=== PATIENT | female | born 1995 | race American Indian/Alaskan Native ===

== ENCOUNTER 2016-11-11 15:13 | Emergency (ER) | payer SELFPAY ==
[2016-11-11 16:08] VITALS: BP 110/63
--- NOTE | 2016-11-11 16:23 | Emergency Department Report ---
Chief Complaint: Abdominal Pain Stated Complaint: SEVERE ABD PAIN/VOMITTING Time Seen by Provider: 11/11/16 16:17 - HPI History of Present Illness: 21-year-old female presents today with abdominal pain 3 days. Denies fever, chills, nausea, vomiting, chest pain, shortness of breath, burning upon urination, vaginal discharge. Also complaining of red blood in urine 5 days but is unsure whether it's vaginal or urinary. - ROS Review of Systems: Per HPI - Exam Vital Signs: Vital Signs 11/11/16 16:01 Temperature 98.2 F Pulse Rate 73 Respiratory 16 Rate Blood Pressure 110/63 O2 Sat by Pulse 100 Oximetry Physical Exam: General: A 1-year-old female in no acute distress. Well-developed, well- nourished. CV: Regular rate and rhythm. Lungs: Clear to auscultation bilaterally. Abdomen: Tenderness to palpation of the epigastric region and right lower quadrant. No guarding or rebound tenderness. MSE screening note: Focused history and physical exam performed. Due to findings the following was ordered: ED Disposition for MSE Condition: Stable Instructions: Abdominal Pain (ED)
[2016-11-11 16:44] LABS: Basophils % (Auto) 0.5 % (0.0-1.8); Eosinophils % (Auto) 0.9 % (0.0-4.3); Hematocrit 39.5 % (30.3-42.9); Hemoglobin 12.9 gm/dl (10.1-14.3); Mean Corpuscular HGB Conc 33 % (30-34); Mean Corpuscular Hemoglobin 30 pg (28-32); Mean Corpuscular Volume 92 fl (79-97); Platelet Count 215 K/mm3 (140-440); Red Blood Count 4.32 M/mm3 (3.65-5.03); Red Cell Distribution Width 13.1 % (13.2-15.2); White Blood Count 7.3 K/mm3 (4.5-11.0)
[2016-11-11 17:02] LABS: Anion Gap 16 mmol/L; BUN/Creatinine Ratio 18.57; Blood Urea Nitrogen 13 mg/dL (7-17); Calcium 8.8 mg/dL (8.4-10.2); Carbon Dioxide 26 mmol/L (22-30); Glucose 69 mg/dL (65-100); Lipase 23 units/L (13-60); Sodium 140 mmol/L (137-145)
[2016-11-11 17:17] LABS: Bilirubin,Urine NEG (Negative); Blood,Urine LG (Negative); Ketones,Urine NEG (Negative); Leukocyte Esterase,Urine NEG (Negative); Mucus,Urine 3+ /HPF; Nitrite,Urine NEG (Negative); Protein,Urine <15 mg/dL mg/dL (Negative)
--- NOTE | 2016-11-13 12:21 | ED Elopement Review ---
ED Pt Elopement review - Results review Lab results: Laboratory Tests 11/11/16 11/11/16 11/11/16 16:24 16:24 16:24 WBC 7.3 RBC 4.32 Hgb 12.9 Hct 39.5 MCV 92 MCH 30 MCHC 33 RDW 13.1 L Plt Count 215 Lymph % (Auto) 28.5 [place] % (Auto) 6.5 Eos % (Auto) 0.9 Baso % (Auto) 0.5 Lymph # 2.1 [place] # 0.5 Eos # 0.1 Baso # 0.0 Seg Neutrophils % 63.6 Seg Neutrophils # 4.7 Sodium 140 Potassium 4.0 Chloride 102.0 Carbon Dioxide 26 Anion Gap 16 BUN 13 Creatinine 0.7 Estimated GFR > 60 BUN/Creatinine Ratio 18.57 Glucose 69 Calcium 8.8 Amylase 78 Lipase 23 Urine Color Urine Turbidity Urine pH Ur Specific [place] Urine Protein Urine Glucose (UA) Urine Ketones Urine Blood Urine Nitrite Urine Bilirubin Urine Urobilinogen Ur Leukocyte Esterase Urine WBC (Auto) Urine RBC (Auto) U Epithel Cells (Auto) Urine Mucus Urine HCG, Qual 11/11/16 16:53 WBC RBC Hgb Hct MCV MCH MCHC RDW Plt Count Lymph % (Auto) [place] % (Auto) Eos % (Auto) Baso % (Auto) Lymph # [place] # Eos # Baso # Seg Neutrophils % Seg Neutrophils # Sodium Potassium Chloride Carbon Dioxide Anion Gap BUN Creatinine Estimated GFR BUN/Creatinine Ratio Glucose Calcium Amylase Lipase Urine Color Yellow Urine Turbidity Clear Urine pH 6.0 Ur Specific [place] 1.024 Urine Protein <15 mg/dl Urine Glucose (UA) Neg Urine Ketones Neg Urine Blood Lg Urine Nitrite Neg Urine Bilirubin Neg Urine Urobilinogen 2.0 Ur Leukocyte Esterase Neg Urine WBC (Auto) 1.0 Urine RBC (Auto) 2.0 U Epithel Cells (Auto) 6.0 Urine Mucus 3+ Urine HCG, Qual Negative - Call Back decision Pt Call Back Decision: No action required
== END 2016-11-11 23:55 | disposition left against medical advice (07) ==
LOC: ED 15:13
DX: R10.9 Unspecified abdominal pain (principal); R31.9 Hematuria, unspecified; Z53.21 Procedure and treatment not carried out due to patient leaving prior to being seen by health care provider
CPT/HCPCS: 36415; 80048; 81001; 81025; 82150; 83690; 85025

== ENCOUNTER 2017-08-02 10:47 | Emergency (ER) | payer SELFPAY ==
[2017-08-02 11:41] VITALS: BP 108/67
[2017-08-02 12:37] LABS: Bilirubin,Urine NEG (Negative); Blood,Urine NEG (Negative); Ketones,Urine NEG (Negative); Leukocyte Esterase,Urine TR (Negative); Mucus,Urine 3+ /HPF; Nitrite,Urine NEG (Negative)
== END 2017-08-02 12:30 | disposition left against medical advice (07) ==
LOC: ED 10:47
DX: M54.9 Dorsalgia, unspecified (principal); Z53.21 Procedure and treatment not carried out due to patient leaving prior to being seen by health care provider
CPT/HCPCS: 81001; 81025

== ENCOUNTER 2018-06-20 05:57 | Emergency (ER) | payer MEDICAID ==
[2018-06-20] MEDS ORDERED: BENADRYL IV ONE (06:48)
[2018-06-20] MEDS ORDERED: REGLAN IV ONE (06:49)
[2018-06-20 07:52] VITALS: BP 106/57
--- NOTE | 2018-06-20 08:00 | Emergency Department Report ---
ED General Adult HPI - General Chief complaint: Headache Stated complaint: SEVERE HEADACHE/6MO Time Seen by Provider: 06/20/18 07:58 Source: patient, RN notes reviewed, old records reviewed Mode of arrival: Ambulatory Limitations: No Limitations - History of Present Illness Initial comments: This is a 23-year-old female who is not known to this provider previously. She is 4, para 3. Her last menstrual period is December 29. She reports not having had care since April. She thinks is because she does not have insurance. Her primary medical complaints his headache. The headache is right-sided, temporal and retro-orbital. It has been present intermittently for 5 days. It does not radiate anywhere. It decreases when she goes to sleep. It increases with exposure to loud sounds and bright lights. The headache is not sudden or thunderclap in nature. It did not reach maximal intensity within an hour. The headache is not associated with neck pain, vomiting, ataxia, weakness, numbness, change in mental status. The patient was given Reglan and Benadryl, and these completely resolved her headache. She currently denies headache, neck pain, chest pain, abdominal pain, shortness of breath and urinary symptoms. -: Gradual Location: head Radiation: non-radiation Quality: aching Consistency: intermittent Improves with: other Worsens with: medication Associated Symptoms: denies: confusion, chest pain, cough, diaphoresis, fever/ chills, loss of appetite, malaise, nausea/vomiting, rash, seizure, shortness of breath, syncope, weakness - Related Data Previous Rx's Medication Instructions Recorded Last Taken Type Nitrofurantoin [place]/M-Cryst 100 mg PO Q12HR #14 capsule 02/03/15 Unknown Rx [Macrobid] Ondansetron [Zofran Odt] 4 mg PO Q6H #30 tab.rapdis 02/03/15 Unknown Rx Vit-Fe Fumar-FA [ 1 each PO QDAY #90 tablet 02/03/15 Unknown Rx Vitamin] metroNIDAZOLE 0.75%(NF) [Metrogel 1 applicatio TP BID #1 tube 02/03/15 Unknown Rx 0.75%] HYDROcodone/APAP 5-325 [[place] 1 each PO Q6H PRN #20 tablet 07/28/15 Unknown Rx 5-325 mg TAB] Ibuprofen [Motrin 600 MG tab] 600 mg PO Q6H PRN #100 tablet 07/28/15 Unknown Rx Amoxicillin/K Clav Tab [Augmentin 1 tab PO Q12HR #14 tab 02/27/16 Unknown Rx 875 mg] Fluticasone [Flonase] 1 spray NS QDAY #1 bottle 02/27/16 Unknown Rx Neomy/Polymyx B/Hc (Otic) Soln 4 drops OTIC TID #1 bottle 02/27/16 Unknown Rx [Cortisporin (Otic) Soln] methylPREDNISolone [Medrol Dose 4 mg PO QAM #1 pack 02/27/16 Unknown Rx [place]] Acetaminophen [Tylenol Arthritis] 650 mg PO Q6HR PRN #30 tablet.er 06/20/18 Unknown Rx Doxylamine Succinate/Vit B6 1 each PO QHS PRN #30 tablet. 06/20/18 Unknown Rx [Monica Pérez 10-10 mg Tablet] Vit Calc,Iron,Folic 1 each PO QDAY #30 tablet 06/20/18 Unknown Rx [ Vitamins] Allergies Allergy/AdvReac Type Severity Reaction Status Date / Time No Known Allergies Allergy Verified 07/28/15 06:34 ED Review of Systems ROS: Stated complaint: SEVERE HEADACHE/6MO Other details as noted in HPI Comment: All other systems reviewed and negative ED Past Medical Hx - Past Medical History Previous Medical History?: Yes Hx Hypertension: No Hx Congestive Heart Failure: No Hx Diabetes: No Hx Deep Vein Thrombosis: No Hx Renal Disease: No Hx Sickle Cell Disease: No Hx Seizures: No Hx Asthma: No Hx COPD: No Hx HIV: No - Surgical History Past Surgical History?: No - Social History Smoking Status: Never Smoker - Medications Home Medications: Home Medications Medication Instructions Recorded Confirmed Last Taken Type Nitrofurantoin [place]/M-Cryst 100 mg PO Q12HR #14 capsule 02/03/15 07/29/15 Unknown Rx [Macrobid] Ondansetron [Zofran Odt] 4 mg PO Q6H #30 tab.rapdis 02/03/15 07/29/15 Unknown Rx Vit-Fe Fumar-FA [ 1 each PO QDAY #90 tablet 02/03/15 07/29/15 Unknown Rx Vitamin] metroNIDAZOLE 0.75%(NF) [Metrogel 1 applicatio TP BID #1 tube 02/03/15 07/29/15 Unknown Rx 0.75%] HYDROcodone/APAP 5-325 [[place] 1 each PO Q6H PRN #20 tablet 07/28/15 Unknown Rx 5-325 mg TAB] Ibuprofen [Motrin 600 MG tab] 600 mg PO Q6H PRN #100 tablet 07/28/15 Unknown Rx Amoxicillin/K Clav Tab [Augmentin 1 tab PO Q12HR #14 tab 02/27/16 Unknown Rx 875 mg] Fluticasone [Flonase] 1 spray NS QDAY #1 bottle 02/27/16 Unknown Rx Neomy/Polymyx B/Hc (Otic) Soln 4 drops OTIC TID #1 bottle 02/27/16 Unknown Rx [Cortisporin (Otic) Soln] methylPREDNISolone [Medrol Dose 4 mg PO QAM #1 pack 02/27/16 Unknown Rx [place]] Acetaminophen [Tylenol Arthritis] 650 mg PO Q6HR PRN #30 tablet.er 06/20/18 Unknown Rx Doxylamine Succinate/Vit B6 1 each PO QHS PRN #30 tablet. 06/20/18 Unknown Rx [Monica Dr 10-10 mg Tablet] Vit Calc,Iron,Folic 1 each PO QDAY #30 tablet 06/20/18 Unknown Rx [ Vitamins] ED Physical Exam - General Limitations: No Limitations General appearance: alert, in no apparent distress - Head Head exam: Present: atraumatic, normocephalic - Eye Eye exam: Present: normal appearance, PERRL, EOMI, other (visual acuity intact to finger counting, color perception, reading at a close distance). Absent: nystagmus - ENT ENT exam: Present: normal exam, normal orophraynx, mucous membranes moist, normal external ear exam - Neck Neck exam: Present: normal inspection, full ROM. Absent: tenderness, meningismus - Respiratory Respiratory exam: Present: normal lung sounds bilaterally. Absent: respiratory distress - Cardiovascular Cardiovascular Exam: Present: regular rate, normal rhythm, normal heart sounds. Absent: systolic murmur, diastolic murmur, rubs, gallop - GI/Abdominal GI/Abdominal exam: Present: soft, other (the uterus is appropriately gravid. There is no abdominal tenderness. There is no rebound, guarding or peritoneal signs). Absent: distended, tenderness, guarding, rebound, rigid, pulsatile mass - Extremities Exam Extremities exam: Present: normal inspection, full ROM, normal capillary refill , other (2+ pulses noted in the bilateral upper, lower extremities. Compartments soft. No long bony tenderness. The pelvis is stable.). Absent: tenderness, pedal edema, joint swelling, calf tenderness - Back Exam Back exam: Present: normal inspection, full ROM. Absent: tenderness, CVA tenderness (R), paraspinal tenderness, vertebral tenderness - Neurological Exam Neurological exam: Present: alert, oriented X3, CN II-XII intact, normal gait ( normal gait. Normal tandem gait. Negative Romberg exam. Negative pronator drift. Normal [id number]. Negative past pointing.), other (Extraocular movements intact. Tongue midline. No facial droop. Facial sensation intact to light touch in the V1, V2, V3 distribution bilaterally. 5 and 5 strength in 4 extremities.. Sensation is intact to light touch in 4 extremities.). Absent : motor sensory deficit - Psychiatric Psychiatric exam: Present: normal affect, normal mood - Skin Skin exam: Present: warm, dry, intact, normal color. Absent: rash ED Course Vital Signs 06/20/18 06/20/18 06/20/18 06:31 07:40 07:52 Temperature 98.1 F Pulse Rate 79 Respiratory 12 12 Rate Blood Pressure 113/64 106/57 O2 Sat by Pulse 100 100 Oximetry - Reevaluation(s) Reevaluation #1: 06/20/18 10:21 heart tones were appreciated by the nurse on exam and they are appropriate. ED Medical Decision Making - Lab Data Result diagrams: 06/20/18 08:46 06/20/18 08:46 Vital Signs 06/20/18 06/20/18 06/20/18 06:31 07:40 07:52 Temperature 98.1 F Pulse Rate 79 Respiratory 12 12 Rate Blood Pressure 113/64 106/57 O2 Sat by Pulse 100 100 Oximetry Lab Results 06/20/18 06/20/18 06/20/18 Range/Units 08:21 08:46 08:46 WBC 5.9 (4.5-11.0) K/mm3 RBC 3.79 (3.65-5.03) M/mm3 Hgb 11.7 (10.1-14.3) gm/dl Hct 34.5 (30.3-42.9) % MCV 91 (79-97) fl MCH 31 (28-32) pg MCHC 34 (30-34) % RDW 13.4 (13.2-15.2) % Plt Count 221 (140-440) K/mm3 Sodium 138 (137-145) mmol/L Potassium 3.9 (3.6-5.0) mmol/L Chloride 103.8 (98-107) mmol/L Carbon Dioxide 23 (22-30) mmol/L Anion Gap 15 mmol/L BUN 11 (7-17) mg/dL Creatinine 0.6 L (0.7-1.2) mg/dL Estimated GFR > 60 ml/min BUN/Creatinine Ratio 18 % Glucose 78 (65-100) mg/dL Calcium 8.4 (8.4-10.2) mg/dL Total Bilirubin 0.20 (0.1-1.2) mg/dL AST 14 (5-40) units/L ALT 9 (7-56) units/L Alkaline Phosphatase 60 (35-129) units/L Total Protein 6.5 (6.3-8.2) g/dL Albumin 3.3 L (3.9-5) g/dL Albumin/Globulin Ratio 1.0 % HCG, Quant (0-4) mIU/mL Urine Bilirubin Neg (Negative) Urine RBC (Auto) 4.0 (0.0-6.0) /HPF U Epithel Cells (Auto) 21.0 H (0-13.0) /HPF 08/13/18 Range/Units 08:46 WBC (4.5-11.0) K/mm3 RBC (3.65-5.03) M/mm3 Hgb (10.1-14.3) gm/dl Hct (30.3-42.9) % MCV (79-97) fl MCH (28-32) pg MCHC (30-34) % RDW (13.2-15.2) % Plt Count (140-440) K/mm3 Sodium (137-145) mmol/L Potassium (3.6-5.0) mmol/L Chloride (98-107) mmol/L Carbon Dioxide (22-30) mmol/L Anion Gap mmol/L BUN (7-17) mg/dL Creatinine (0.7-1.2) mg/dL Estimated GFR ml/min BUN/Creatinine Ratio % Glucose (65-100) mg/dL Calcium (8.4-10.2) mg/dL Total Bilirubin (0.1-1.2) mg/dL AST (5-40) units/L ALT (7-56) units/L Alkaline Phosphatase (35-129) units/L Total Protein (6.3-8.2) g/dL Albumin (3.9-5) g/dL Albumin/Globulin Ratio % HCG, Quant 33828 H (0-4) mIU/mL Urine Bilirubin (Negative) Urine RBC (Auto) (0.0-6.0) /HPF U Epithel Cells (Auto) (0-13.0) /HPF - Medical Decision Making Differential diagnosis, including but not limited to: Migraine headache, tension headache, cluster headache, associated headache Assessment and plan: 23-year-old female with resolved headache. She is afebrile with reassuring vital signs, clinically sober, has a GCS of 15, with an NIH score of 0 and walks with a steady gait. Her headache is not historically consistent with subarachnoid hemorrhage, meningitis, intracranial hemorrhage, and is very unlikely by history and exam to be a venous sinus thrombosis. The patient does indeed have medical insurance. I instructed the patient on the importance of close outpatient follow-up with local [facility] to continue care, both for her safety and for the fetus's safety. Critical care attestation.: If time is entered above; I have spent that time in minutes in the direct care of this critically ill patient, excluding procedure time. ED Disposition Clinical Impression: Insufficient care, Headache Disposition: DC-01 TO HOME OR SELFCARE Is pt being admited?: No Does the pt Need Aspirin: No Condition: Stable Additional Instructions: Take the medications as needed/directed. Follow up as soon as possible with an outpatient [facility] doctor to initiate outpatient care. Patient does indeed have medical insurance. Not following up with an outpatient [facility] doctor may result in continued insufficient care, which can potentially lead to disability, loss of quality of life and even loss of the , and danger to the mother as well. Avoid consumption of Motrin, ibuprofen, Naprosyn, Aleve. Avoid consumption of caffeinated beverages. Return to the ER right away with new pain, worsened pain, migration of pain, fevers, chills, lethargy, irritability, projectile vomiting, change in mental status, confusion, inability to tolerate liquid feeds. Prescriptions: Doxylamine Succinate/Vit B6 [Monica Pérez 10-10 mg Tablet] 1 each PO QHS PRN #30 tablet. PRN Reason: Nausea Acetaminophen [Tylenol Arthritis] 650 mg PO Q6HR PRN #30 tablet.er PRN Reason: Pain Vit Calc,Iron,Folic [ Vitamins] 1 each PO QDAY #30 tablet Referrals: PRIMARY CARE, [Primary Care Provider] - 3-5 Days [facility] [Provider Group] - 3-5 Days [facility] [Provider Group] - 3-5 Days [facility] [Provider Group] - 3-5 Days
[2018-06-20 09:00] LABS: Hematocrit 34.5 % (30.3-42.9); Hemoglobin 11.7 gm/dl (10.1-14.3); Mean Corpuscular HGB Conc 34 % (30-34); Mean Corpuscular Hemoglobin 31 pg (28-32); Mean Corpuscular Volume 91 fl (79-97); Platelet Count 221 K/mm3 (140-440); Red Blood Count 3.79 M/mm3 (3.65-5.03); Red Cell Distribution Width 13.4 % (13.2-15.2)
[2018-06-20 09:13] LABS: Alanine Aminotransferase 9 units/L (7-56); Albumin 3.3 g/dL (3.9-5); BUN/Creatinine Ratio 18; Blood Urea Nitrogen 11 mg/dL (7-17); Calcium 8.4 mg/dL (8.4-10.2); Hemolysis Index 3
[2018-06-20 09:52] LABS: Bacteria,Urine 1+ /HPF (Negative); Bilirubin,Urine NEG (Negative); Blood,Urine NEG (Negative); Color,Urine Yellow (Yellow); Mucus,Urine 1+ /HPF; Protein,Urine <15 mg/dL mg/dL (Negative)
[2018-06-20 10:26] LABS: INR 0.95 (0.87-1.13); Partial Thromboplastin Time 28.1 Sec. (24.2-36.6)
== END 2018-06-20 10:30 | disposition home or self-care (01) ==
LOC: ED 05:57
DX: O09.32 Supervision of pregnancy with insufficient antenatal care, second trimester (principal); Z3A.24 24 weeks gestation of pregnancy
CPT/HCPCS: 36415; 80053; 81001; 84702; 85027; 85610; 85730; 96374; 96375; 99284; J1200; J2765

== ENCOUNTER → 2018-07-14 | Emergency (ER) | payer MEDICAID ==
[~2018-07-14] MED LIST: LACTATED RINGERS 500 ML IV ONE
== END ==
LOC: TRG 12:46 → ED 12:46 → TRG 12:48 → EDSTATUS 16:57
DX: O26.893 Other specified pregnancy related conditions, third trimester (principal); Z3A.27 27 weeks gestation of pregnancy; Z53.21 Procedure and treatment not carried out due to patient leaving prior to being seen by health care provider
CPT/HCPCS: 59025

== ENCOUNTER 2018-09-02 18:01 | Outpatient (CLI) | payer MEDICAID ==
[2018-09-02 18:33] VITALS: BP 107/57
[2018-09-02] MEDS ORDERED: LACTATED RINGERS 500 ML IV ONE (18:56)
[2018-09-02 19:38] LABS: Bilirubin,Urine NEG (Negative); Blood,Urine NEG (Negative); Color,Urine Yellow (Yellow); Mucus,Urine FEW /HPF; Protein,Urine <15 mg/dL mg/dL (Negative); Urobilinogen,Urine < 2.0 mg/dL (<2.0)
--- NOTE | 2018-09-03 18:17 | Event Note ---
Date: 09/02/18 Late entry for 09/02/18: Patient is a [facility] patient who presented to L&D triage on 09/02/18 with complaint of urinary frequency and lower abdominal pain. I (ERNESTO) was never notified that patient was here in triage. Apparently patient signed out AMA shortly after getting here. I was notified several hours after patient had left that patient had been in triage for a brief period of time and had signed out AMA, but I was never aware of patient's presence on the unit while she was actually here. Tried to reach patient several times by phone after I was notified that she had been here but was unsuccessful. Will keep trying to reach patient to discuss her results with her. Per RN notes, patient is 23 year old and is currently 35 weeks, 2 days gestation.
== END 2018-09-02 19:20 | disposition left against medical advice (07) ==
LOC: TRG 18:01
PROVIDERS: ATTEND Obstetrics & Gynecology
DX: O26.893 Other specified pregnancy related conditions, third trimester (principal); R35.0 Frequency of micturition; R10.30 Lower abdominal pain, unspecified; Z3A.35 35 weeks gestation of pregnancy
CPT/HCPCS: 81001